=== PATIENT | male | born 1970 | race Caucasian/White ===

== ENCOUNTER 2016-08-27 13:25 | Emergency (ER) | payer MEDICAID ==
--- NOTE | 2016-08-27 13:47 | ED Physician Chart ---
Chief Complaint/HPI - Patient Information Date Seen:: 08/27/16 Time Seen:: 13:32 Chief Complaint:: Redness in distal R lower leg for one day. History of Present Illness:: c/o redness with pain in lateral aspect of distal R lower leg for one day. Pt denies any fall or trauma to R lower leg. No other bodily injury or pain. Pt noticed a "small pimple" in the affected area about 4 days ago. Pt remains ambulatory without difficulty. No fever or chill. Taking po well without N/V/D. Pt has not taken any analgesic or antipyretic today. Pt is Malay speaking. Interpretation is provided by my nurse Veronica. Allergies:: Allergies Allergy/AdvReac Type Severity Reaction Status Date / Time No Known Allergies Allergy Verified 08/27/16 13:37 Vitals:: see Nurse Note. Historian:: Patient Family MD/PCP:: Unknown LMP:: N/A Review:: Nurse's Note Reviewed Review of Systems - Review of Systems General/Constitutional: No fever, No chills, No weight loss, No weakness, No diaphoresis, No edema, No loss of appetite Skin: No rash, No bruising, Other (redness in lateral distal R lower leg.) Head: No headache, No light-headedness Eyes: No loss of vision, No pain, No diplopia ENT: No earache, No nasal drainage, No sore throat, No tinnitus Neck: No neck pain, No swelling, No stiffness, No mass noted Cardio Vascular: No chest pain, No palpitations, No PND, No orthopnea, No edema Pulmonary: No SOB, No cough, No sputum, No wheezing GI: No nausea, No vomiting, No diarrhea, No pain G/U: No dysuria, No frequency, No hematuria Musculoskeletal: No bone or joint pain, No muscle pain Endocrine: No polyuria, No polydipsia Psychiatric: No prior psych history Hematopoietic: No bruising, No lymphadenopathy Allergic/Immuno: No urticaria, No angioedema Neurological: No syncope, No focal symptoms, No weakness, No paresthesia, No headache, No seizure, No dizziness, No confusion, No vertigo Past Medical History - Past Medical History Past Medical History: No significant medical hx Social History: Smoker (one cigaret weekly. Pt has been informed about health risks associated with tobacco use and has been advised to quit. Pt acknowledges understanding), No Alcohol, No Drug Use, , Other (lives with his and children.) Employment:: Gardening. Surgical History: None Psychiatricy History: None Medication: None Family Medical History - Family Member Mother History Unknown: Yes Physical Exam - Physical Examination General/Constitutional: Awake, Well-developed, well-nourished, Alert, No distress, GCS 15, Non-toxic appearing, Ambulatory Other Gen/Cons comments:: Breathes comfortably, speaks clearly, and ambulates without difficulty. Head: Atraumatic Eyes: Lids, conjuctiva normal, PERRL, EOMI Skin: Nl inspection, No rash, No skin lesions, No ecchymosis, Well hydrated, No lymphadenopathy Other Skin comments:: see also Extremities exam. ENMT: External ears, nose nl, Nasal exam nl, Lips, teeth, gums nl, Oropharynx nl Neck: Nontender, Full ROM w/o pain, No JVD, No nuchal rigidity, No mass, No stridor Respiratory: Nl effort/Exclusion, Clear to Auscultation, No Wheeze/Rhonchi/Rales Cardio Vascular: RRR, No murmur, gallop, rubs, NL S1 S2 GI: No tenderness/rebounding/guarding, No organomegaly, Normal BS's, Nondistended, No mass/bruits Other GI comments:: Abdomen is obese but soft. Other Extremities comments:: RLE: Lower leg: There is an area of erythema about 3 cm at lateral distal aspect with minimal tenderness and swelling. No red streaking. No gross deformity or open wound. No crepitus or unusual warmth. Good ROM of all joints, including R ankle. No detectable motor/sensory/vascular deficit. Good distal pulse and capillary refill. Neuro/Psych: Alert/oriented (oriented x 3.), Judgement/insight normal, Mood normal, Normal gait, No focal deficits ED Septic Shock - . Is Septic Shock (SBP<90, OR Lactate>4 mmol\\L) present?: No Reassessment (Disposition) - Reassessment Reassessment:: 1503 Pt feels much better and ambulates without difficulty. Pt requests to go home now. Aftercare instructions have been given. Interpretation by my nurse Veronica. Reassessment Condition:: Improved - Diagnosis Diagnosis:: Early cellulitis R lower leg, stable. - Aftercare/Follow up Instructions Aftercare/Follow-Up Instructions:: Refer to Discharge Instructions Notes:: Keep affected area clean and dry. May take Tylenol 500 mg tab one tab po q6h prn pain. F/U with Dr. Fermin or PCP of pt's choice in one day for recheck. Return to ER immediately if condition worsens or if any further questions/problems. Medication Prescribed:: Bactrim DS one tab po q12h for 10 days. D-20 R-0 - Patient Disposition Discharge/Transfer:: Home Time:: 15:05 Condition at Disposition:: Stable, Improved ED Discharge Plan - Patient Disposition Instructions: Cellulitis Additional Instructions: TOLERATED.
[2016-08-27] MEDS ORDERED: Sulfamethoxazole/TMP 800/160mg Tab PO ONE (13:56)
[2016-08-27] MEDS ORDERED: Sulfamethoxazole/TMP 800/160mg Tab ONE (14:14)
== END 2016-08-27 15:10 | disposition home or self-care (01) ==
LOC: ER 13:25
DX: L03.115 Cellulitis of right lower limb (principal); F17.210 Nicotine dependence, cigarettes, uncomplicated
CPT/HCPCS: Z7502

== ENCOUNTER 2016-08-30 11:42 | Emergency (ER) | payer MEDICAID ==
--- NOTE | 2016-08-30 12:37 | ED Physician Chart ---
Chief Complaint/HPI - Patient Information Date Seen:: 08/30/16 Time Seen:: 12:30 Chief Complaint:: right leg infection History of Present Illness:: location: right leg quality: infection, redness severity: mild duration: 4 days context: pt with small bulla right lower leg few days ago with surrounding redness. came to ER for eval, given antibiotics and then discharged to home. has been taking medication but reports the redness is slowly getting bigger so returns to ER today for recheck. says he occasionally feels warm but no measured fever. no chills. no pus discharge from area. no nausea. no vomiting mod factors: none assoc s/s; none hx from pt and . Allergies:: Allergies Allergy/AdvReac Type Severity Reaction Status Date / Time No Known Allergies Allergy Verified 08/30/16 11:51 Vitals:: Vital Signs - 8 hr 08/30/16 11:42 Temp 98.0 F HR 88 RR 16 BP 116/71 O2 Sat % 97 Historian:: Patient Review:: Nurse's Note Reviewed Review of Systems - Review of Systems General/Constitutional: No fever, No chills, No weight loss, No weakness, No diaphoresis, No edema, No loss of appetite Skin: No skin lesions, No rash, No bruising, Other (arae of erythema right lower leg) Head: No headache, No light-headedness Eyes: No loss of vision, No pain, No diplopia ENT: No earache, No nasal drainage, No sore throat, No tinnitus Neck: No neck pain, No swelling, No thyromegaly, No stiffness, No mass noted Cardio Vascular: No chest pain, No palpitations, No PND, No orthopnea, No edema Pulmonary: No SOB, No cough, No sputum, No wheezing GI: No nausea, No vomiting, No diarrhea, No pain, No melena, No hematochezia, No constipation, No hematemesis G/U: No dysuria, No frequency, No hematuria Musculoskeletal: No bone or joint pain, No back pain, No muscle pain Endocrine: No polyuria, No polydipsia Psychiatric: No prior psych history, No depression, No anxiety, No suicidal ideation Hematopoietic: No bruising, No lymphadenopathy Allergic/Immuno: No urticaria, No angioedema Neurological: No syncope, No focal symptoms, No weakness, No paresthesia, No headache, No seizure, No dizziness, No confusion, No vertigo Past Medical History - Past Medical History Past Medical History: No significant medical hx Family History: None Social History: Smoker, No Alcohol, No Drug Use, Surgical History: None Psychiatricy History: None Medication: None Family Medical History - Family Member Mother History Unknown: Yes Physical Exam - Physical Examination General/Constitutional: Awake, Well-developed, well-nourished, Alert, No distress, GCS 15, Non-toxic appearing, Ambulatory Head: Atraumatic Eyes: Lids, conjuctiva normal, PERRL, EOMI Skin: Nl inspection, No rash, No skin lesions, No ecchymosis, Well hydrated, No lymphadenopathy ENMT: External ears, nose nl, Nasal exam nl, Lips, teeth, gums nl Neck: Nontender, Full ROM w/o pain, No JVD, No nuchal rigidity, No bruit, No mass, No stridor Respiratory: Nl effort/Exclusion, Clear to Auscultation, No Wheeze/Rhonchi/Rales Cardio Vascular: RRR, No murmur, gallop, rubs, NL S1 S2 GI: No tenderness/rebounding/guarding, No organomegaly, No hernia, Normal BS's, Nondistended, No mass/bruits, No McBurney tenderness : No CVA tenderness Extremities: Full ROM (right lateral lower leg with erythema 6 x 8 cm and central scar no fluctuance, tenderness of soft tissue, no open wound. ), normal strength in all extremities, No edema, Normal digits & nails Neuro/Psych: Alert/oriented, Normal sensory exam, Normal motor strength, Judgement/insight normal, Mood normal, Normal gait, No focal deficits Misc: normal gait, Normal back, No paraspinal tenderness Assessment - Assessment General Assessment: stable while in ER, afebrile with stable vital signs ED Septic Shock - . Is Septic Shock (SBP<90, OR Lactate>4 mmol\L) present?: No - <6hrs of presentation: Vital Signs: Vital Signs - 8 hr 08/30/16 11:42 Temp 98.0 F HR 88 RR 16 BP 116/71 O2 Sat % 97 Reassessment (Disposition) - Reassessment Reassessment:: pt stable while in ER. Reassessment Condition:: Unchanged - Diagnosis Diagnosis:: cellulitis right leg - Aftercare/Follow up Instructions Aftercare/Follow-Up Instructions:: Refer to Discharge Instructions Medication Prescribed:: continue current antibiotic and add keflex 500mg po qid x 7 days - Patient Disposition Discharge/Transfer:: Home Condition at Disposition:: Stable
[2016-08-30 12:47] LABS: % BASOPHILS 0.4 % (0.0-2.0); % EOSINOPHILS 0.8 % (0.0-5.0); % LYMPHOCYTES 21.2 % (20.0-50.0); % MONOCYTES 7.5 % (2.0-10.0); % NEUTROPHILS 70.1 % (40.0-80.0); HEMATOCRIT 44.3 % (39.0-49.0); HEMOGLOBIN 14.8 gm/dL (13.2-17.3); MEAN CELL VOLUME 87.5 fl (80-99); MEAN CORPUSCULAR HEMOGLOBIN 29.3 pg (26.0-30.0); MEAN CORPUSCULAR HGB CONC 33.4 pg (28.0-36.0); MEAN PLATELET VOLUME 8.7 fl; NEUTROPHILE ABSOLUTE 5.1 Th/cmm (1.8-8.0); PLATELET COUNT 172 Th/cmm (150-400); RED BLOOD COUNT 5.06 Mil/cmm (4.30-5.70); RED CELL DISTRIBUTION WIDTH 13.1 % (11.5-20.0); WHITE BLOOD COUNT 7.4 Th/cmm (4.8-10.8)
== END 2016-08-30 13:44 | disposition home or self-care (01) ==
LOC: ER 11:42
DX: L03.115 Cellulitis of right lower limb (principal); F17.200 Nicotine dependence, unspecified, uncomplicated
CPT/HCPCS: 99283; 96372; 36415; 85025; J0696; Z7502